=== PATIENT | female | born 1990 | race Caucasian/White ===

== ENCOUNTER 2019-03-31 12:13 | Emergency (ER) | payer MEDICAID ==
[~2019-03-31] VITALS: Ht 157.5 cm; Wt 115.0 kg
[~2019-03-31 12:13] MED LIST: IBUP-1222 PO; LABE200T6 PO; OXYC-302 PO
[2019-03-31 12:50] VITALS: BP 137/85
--- NOTE | 2019-03-31 14:58 | NUR ---
NO ANSWER IN LOBBY
--- NOTE | 2019-03-31 15:07 | NUR ---
PT TO ROOM AT THIS TIME.
[2019-03-31 15:17] LABS: ALANINE AMINOTRANSFERASE 71 U/L (12-78); ALBUMIN 3.5 g/dL (3.4-5.0); ANION GAP 5 mmol/L (5-15); CALCIUM 8.7 mg/dL (8.5-10.1); CHLORIDE 106 mmol/L (98-107)
[2019-03-31 15:19] LABS: BASOPHILS # (AUTO) 0.03 x10^3/uL (0-0.1); BASOPHILS % (AUTO) 0 % (0-1); EOSINOPHILS # (AUTO) 0.11 x10^3/uL (0-0.4); EOSINOPHILS % (AUTO) 1 % (1-7); LYMPHOCYTES # (AUTO) 1.85 x10^3/uL (1-3.4); LYMPHOCYTES % (AUTO) 20 % (22-44); MD NO; MEAN CORPUSCULAR HEMOGLOBIN 29.3 pg (27.0-34.8); MEAN CORPUSCULAR VOLUME 88.6 fL (80-100); MEAN PLATELET VOLUME 9.7 fL (7.4-10.4); MONOCYTES # (AUTO) 0.42 x10^3/uL (0.2-0.8); MONOCYTES % (AUTO) 5 % (2-9); NEUTROPHILS # (AUTO) 6.91 x10^3/uL (1.8-6.8); NEUTROPHILS % (AUTO) 74 % (42-75); PLATELET COUNT 274 x10^3/uL (130-400); RED BLOOD COUNT 4.85 x10^6/uL (3.82-5.3); RED CELL DISTRIBUTION WIDTH 13.2 % (9.6-15.2)
[2019-03-31 15:22] LABS: ALKALINE PHOSPHATASE 50 U/L (45-117); BILIRUBIN,TOTAL 0.7 mg/dL (0.2-1.0); TOTAL PROTEIN 7.5 g/dL (6.4-8.2)
--- NOTE | 2019-03-31 15:54 | NUR ---
urine sample walked to lab
[2019-03-31 16:14] LABS: MICROSCOPIC AUTO
[2019-03-31 16:15] LABS: CULTURE INDICATED? YES
--- NOTE | 2019-03-31 16:54 | NUR ---
PT TO CT
== END 2019-03-31 17:37 | disposition home or self-care (01) ==
LOC: ED 15:57
DX: R10.84 Generalized abdominal pain (principal); R19.7 Diarrhea, unspecified; J45.909 Unspecified asthma, uncomplicated
CPT/HCPCS: 36415; 74176; 80053; 81001; 83690; 84703; 85025; 87086; 99284

== ENCOUNTER 2019-10-18 14:01 | Emergency (ER) | payer MEDICAID ==
[~2019-10-18] VITALS: Ht 160 cm; Wt 118.1 kg
[2019-10-18 15:05] LABS: BASOPHILS # (AUTO) 0.03 x10^3/uL (0-0.1); BASOPHILS % (AUTO) 1 % (0-1); EOSINOPHILS # (AUTO) 0.14 x10^3/uL (0-0.4); EOSINOPHILS % (AUTO) 2 % (1-7); LYMPHOCYTES % (AUTO) 31 % (22-44); MD NO; MEAN CORPUSCULAR HGB CONC 33.8 g/dL (32.4-35.8); MEAN CORPUSCULAR VOLUME 85.8 fL (80-100); MEAN PLATELET VOLUME 8.8 fL (7.4-10.4); MONOCYTES # (AUTO) 0.28 x10^3/uL (0.2-0.8); MONOCYTES % (AUTO) 5 % (2-9); NEUTROPHILS % (AUTO) 61 % (42-75); PLATELET COUNT 244 x10^3/uL (130-400); RED BLOOD COUNT 4.78 x10^6/uL (3.82-5.3); RED CELL DISTRIBUTION WIDTH 13.1 % (9.6-15.2)
[2019-10-18 15:16] LABS: ALANINE AMINOTRANSFERASE 158 U/L (12-78); ANION GAP 11 mmol/L (5-15); CHLORIDE 108 mmol/L (98-107); CREATININE 0.84 mg/dL (0.55-1.02)
[2019-10-18 15:20] LABS: ALKALINE PHOSPHATASE 41 U/L (45-117); BILIRUBIN,TOTAL 0.3 mg/dL (0.2-1.0); TOTAL PROTEIN 7.2 g/dL (6.4-8.2)
--- NOTE | 2019-10-18 15:28 | NUR ---
Report received from FREDERIC Benjamin. This RN to assume care. Awaiting US results.
[2019-10-18 15:32] VITALS: BP 144/78
[2019-10-18 15:49] LABS: MICROSCOPIC AUTO
--- NOTE | 2019-10-18 16:34 | NUR ---
Discharge instructions given. All questions and concerns addressed. Patient ambulatory with a steady gait. Belongings with patient.
== END 2019-10-18 16:36 | disposition home or self-care (01) ==
LOC: ED 16:10
DX: O36.4XX0 Maternal care for intrauterine death, not applicable or unspecified (principal); R10.2 Pelvic and perineal pain; Z3A.16 16 weeks gestation of pregnancy
CPT/HCPCS: 36415; 76815; 80053; 81001; 84702; 85025; 86901; 87086; 99284

== ENCOUNTER 2019-10-21 08:50 | Emergency (ER) | payer MEDICAID ==
[~2019-10-21] VITALS: Ht 160 cm; Wt 119.0 kg
--- NOTE | 2019-10-21 09:20 | NUR ---
PT STATES KNOWN DEMISE DISSCUSSED WITH HER MEDICAL CLAIMS ANALYST DR AT APROX 16 WEEKS GESTATION. PT WITH VB X3 DAYS, INCREASING THIS AM, WITH INCREASING LOW ABD CRAMPING.PT STATES SHE FELT CONTRACTION LIKE PAIN THIS AM AND GOT INTO THE BATH TUB. AT THIS TIME PT STATES SHE PASSED THE FETUS. PT BROUGHT SAMPLE TO ER. L&D CALLED FOR APPROPRIATE SAMPLE CONTAINER WELL RESOURCES FOR PT. WILL FOLLOW YAO.
--- NOTE | 2019-10-21 09:33 | NUR ---
L&D RN AT BEDSIDE TO SPEAK WITH PT.
[2019-10-21] MEDS ORDERED: HYDROcodone/APAP 5/325 TABLET ONE (09:49)
[2019-10-21] MEDS ORDERED: HYDROcodone/APAP 5/325 TABLET PO ONE (10:00)
--- NOTE | 2019-10-21 10:08 | NUR ---
PT TO IMAGING.
[2019-10-21 10:24] LABS: BASOPHILS # (AUTO) 0.02 x10^3/uL (0-0.1); BASOPHILS % (AUTO) 0 % (0-1); EOSINOPHILS # (AUTO) 0.15 x10^3/uL (0-0.4); EOSINOPHILS % (AUTO) 1 % (1-7); LYMPHOCYTES % (AUTO) 15 % (22-44); MD NO; MEAN CORPUSCULAR HEMOGLOBIN 28.7 pg (27.0-34.8); MEAN CORPUSCULAR HGB CONC 33.3 g/dL (32.4-35.8); MONOCYTES # (AUTO) 0.68 x10^3/uL (0.2-0.8); MONOCYTES % (AUTO) 6 % (2-9); NEUTROPHILS # (AUTO) 8.81 x10^3/uL (1.8-6.8); NEUTROPHILS % (AUTO) 78 % (42-75); PLATELET COUNT 247 x10^3/uL (130-400); RED BLOOD COUNT 4.71 x10^6/uL (3.82-5.3); RED CELL DISTRIBUTION WIDTH 13.2 % (9.6-15.2)
[2019-10-21 10:35] LABS: ALBUMIN 3.1 g/dL (3.4-5.0); ANION GAP 8 mmol/L (5-15); CALCIUM 9.1 mg/dL (8.5-10.1); CHLORIDE 110 mmol/L (98-107)
[2019-10-21 10:39] LABS: ALANINE AMINOTRANSFERASE 130 U/L (12-78); ALKALINE PHOSPHATASE 46 U/L (45-117); CREATININE 0.63 mg/dL (0.55-1.02); TOTAL PROTEIN 7.3 g/dL (6.4-8.2)
[2019-10-21 10:54] LABS: BILIRUBIN,TOTAL 0.2 mg/dL (0.2-1.0)
--- NOTE | 2019-10-21 11:49 | NUR ---
L&D RN AT BEDSIDE TO CHECK ON/SPEAK WITH PT. PT STATES PAIN SLIGHTLY DECREASED, MEDICATIONS EFFECTIVE. UP FOR ERMD RECHECK.
--- NOTE | 2019-10-21 12:30 | NUR ---
PT RESTING IN BED, AWAITING ALL RESULTS. ONLY MODERATE VB NOTED, VSS. PT DENIES NEEDS. GHASSAN DE LA GARZA FROM L&D TO COME SPEAK WITH PT AGAIN. CONT TO MONITOR.
--- NOTE | 2019-10-21 13:46 | NUR ---
PT OK FOR D/C PER ERMD. PT GIVEN D/C PAPERWORK, VERBALIZED UNDERSTANDING. PRODUCTS OF CONCEPTION PLACED IN APPROPRIATE HOSPITAL SPECIMEN CONTAINER, ASSISTED BY L&D RN GHASSAN, TAKEN BY GHASSAN DE LA GARZA TO PATHOLOGY. PT GIVEN PADS STARR D/C.
[2019-10-21 13:52] VITALS: BP 142/84
== END 2019-10-21 13:53 | disposition home or self-care (01) ==
LOC: ED 09:34
DX: O03.9 Complete or unspecified spontaneous abortion without complication (principal); J45.909 Unspecified asthma, uncomplicated; R10.2 Pelvic and perineal pain
CPT/HCPCS: 36415; 76830; 80053; 84702; 85025; 86901; 88300; 99284

== ENCOUNTER 2020-01-07 15:23 | Emergency (ER) | payer MEDICAID ==
[~2020-01-07] VITALS: Ht 160 cm; Wt 92.0 kg
--- NOTE | 2020-01-07 15:39 | NUR ---
RENUKA DOWLING AT .
[2020-01-07] MEDS ORDERED: KETOROLAC 30 MG/1 ML ONE (15:47)
[2020-01-07] MEDS ORDERED: KETOROLAC 30 MG/1 ML IM ONE (16:00)
[2020-01-07 16:54] VITALS: BP 109/58
--- NOTE | 2020-01-07 16:54 | NUR ---
D/C INSTRUCTIONS, MEDS & F/U APPT RV'WD WITH PT, SHE VERBALIZES UNDERSTANDING. RX GIVEN X3. PT AMBULATED OUT OF ED WITHOUT DIFFICULTY.
--- NOTE | 2020-01-07 16:54 | NUR ---
RENUKA DOWLING AT FOR RECHECK.
== END 2020-01-07 16:58 | disposition home or self-care (01) ==
LOC: ED 16:24
DX: S39.012A Strain of muscle, fascia and tendon of lower back, initial encounter (principal); M54.42 Lumbago with sciatica, left side; R20.2 Paresthesia of skin; X58.XXXA Exposure to other specified factors, initial encounter; Y93.89 Activity, other specified; Y92.89 Other specified places as the place of occurrence of the external cause; Y99.8 Other external cause status
CPT/HCPCS: 72110; 96372; 99283; J1885